=== PATIENT | male | born 1945 | race American Indian/Alaskan Native ===

== ENCOUNTER 2016-10-21 08:10 | Outpatient (CLI) | payer MEDICARE ==
--- NOTE | 2016-10-21 15:39 | Cat Scan Report ---
CT OF THE ABDOMEN AND PELVIS WITHOUT CONTRAST: HISTORY: Prostate carcinoma. FINDINGS: The liver, spleen, pancreas, and kidneys are unremarkable. No renal calculi are seen. There is ectasia of the abdominal aorta with extensive atheromatous calcifications. The prostate is markedly enlarged consistent with the clinical diagnosis. There is no pelvic adenopathy or abnormal fluid collections. No mesenteric inflammation is seen. There is a right inguinal hernia containing fat. No significant bony abnormalities are seen. IMPRESSION: Prostatic enlargement with no evidence of metastatic disease. A right inguinal hernia is noted.
--- NOTE | 2016-10-21 16:00 | Nuclear Medicine Report ---
Whole body bone scan: The patient is asymptomatic. No clinical history of abnormal left leg. Following injection of radionuclide is activity identified in the urinary tract with a relatively good bone to background ratio. There is intense collection of radionuclide involving the distal third of the left tibia to the ankle articulation. Focal areas of increased tibia identified in the mid foot bilaterally. There is a focal area of activity identified involving the left L4 and right L5 pedicles. A similar area of activity is identified in the left mid cervical region possibly at C5. Mild increased right a.c. joint and left knee activity is noted. Impressions: The multiple focal radionuclide uptake findings are in a distribution most suggestive of degenerative process. The marked uptake in the left tibia suggests a different focal process and plain film correlation would be helpful in making a more definitive diagnosis. Metastatic disease is not suspected.
== END 2016-10-21 08:11 | disposition home or self-care (01) ==
LOC: CT 08:10 → EDBD 08:10 → CT 08:11
PROVIDERS: ATTEND Urology
DX: C61 Malignant neoplasm of prostate (principal); K40.90 Unilateral inguinal hernia, without obstruction or gangrene, not specified as recurrent; R97.20 Elevated prostate specific antigen [PSA]; I77.811 Abdominal aortic ectasia
CPT/HCPCS: 74176; 78306; A9503